=== PATIENT | male | born 1940 | race Two or more races ===

== ENCOUNTER 2020-12-20 11:03 | Inpatient (IN) | payer OTHER ==
[~2020-12-20] VITALS: Ht 175.3 cm; Wt 85.3 kg
[2020-12-20] MEDS ORDERED: TRADJENTA5 MG (11:18)
[2020-12-20] MEDS ORDERED: CARVEDILOL ER40 MG (11:19)
[2020-12-20] MEDS ORDERED: NORVASC5 MG (11:19)
[2020-12-20] MEDS ORDERED: HUMALOG MI100 UNIT/2 (11:19)
[2020-12-20] MEDS ORDERED: AVAPRO300 MG (11:20)
[2020-12-20] MEDS ORDERED: LEVOTHYROXINE25 MC2 (11:20)
[2020-12-20] MEDS ORDERED: PROTONIX40 MG (11:21)
[2020-12-20] MEDS ORDERED: JANTOVEN2 MG (11:21)
[2020-12-20] MEDS ORDERED: PEPCID AC20 MG (11:21)
[2020-12-20] MEDS ORDERED: FENOFIBRATE150 MG (11:22)
[2020-12-20] MEDS ORDERED: MEMANTINE HCL1 EACH (11:22)
[2020-12-20] MEDS ORDERED: CRESTOR10 MG (11:22)
[2020-12-20] MEDS ORDERED: [UNRECOGNIZED DRUG - OTHER] (11:23)
[2020-12-25] MEDS ORDERED: CARVEDILOL3.125 MG PO (18:56)
[2020-12-25] MEDS ORDERED: AMLODIPINE BESYL5 MG PO (18:56)
[2020-12-25] MEDS ORDERED: LEVOTHYROXINE25 MCG PO (18:56)
[2020-12-25] MEDS ORDERED: NAMENDA10 MG PO (18:56)
[2020-12-25] MEDS ORDERED: HUMULIN 70100 UNIT/2 SUBCUTANEO ×2 (18:56)
[2020-12-25] MEDS ORDERED: AVAPRO300 MG PO (18:56)
[2020-12-25] MEDS ORDERED: FAMOTIDINE20 MG PO (18:56)
[2020-12-25] MEDS ORDERED: INTEGRA PLUS C1 EACH PO (18:56)
[2020-12-25] MEDS ORDERED: PROTONIX40 MG PO (19:03)
[2020-12-25] MEDS ORDERED: WARFARIN SODIUM2 MG PO (19:03)
[2020-12-25] MEDS ORDERED: WARFARIN SODIUM3 MG PO (19:03)
== END 2020-12-25 21:14 | disposition home or self-care (01) | DRG 378 ==
LOC: ER 11:03 → MEDI 19:50
PROVIDERS: ADMIT Internal Medicine; ATTEND Internal Medicine
PROC: BW2110Z Computerized Tomography (CT Scan) of Abdomen and Pelvis using Low Osmolar Contrast, Unenhanced and Enhanced (ICD-10-PCS; 2020-12-23)
PROC: 3E0F7SF Introduction of Other Gas into Respiratory Tract, Via Natural or Artificial Opening (ICD-10-PCS; 2020-12-23)
PROC: 0DBH8ZX Excision of Cecum, Via Natural or Artificial Opening Endoscopic, Diagnostic (ICD-10-PCS; principal; 2020-12-24)
PROC: 0DBP8ZX Excision of Rectum, Via Natural or Artificial Opening Endoscopic, Diagnostic (ICD-10-PCS; 2020-12-24)
PROC: BW2510Z Computerized Tomography (CT Scan) of Chest, Abdomen and Pelvis using Low Osmolar Contrast, Unenhanced and Enhanced (ICD-10-PCS; 2020-12-24)
PROC: CW1N1ZZ Planar Nuclear Medicine Imaging of Whole Body using Technetium 99m (Tc-99m) (ICD-10-PCS; 2020-12-24)
DX: K62.5 Hemorrhage of anus and rectum (principal); C20 Malignant neoplasm of rectum; K62.89 Other specified diseases of anus and rectum; I10 Essential (primary) hypertension; E11.9 Type 2 diabetes mellitus without complications; E78.5 Hyperlipidemia, unspecified; Z20.822 Contact with and (suspected) exposure to COVID-19; Z79.01 Long term (current) use of anticoagulants; Z95.2 Presence of prosthetic heart valve

== ENCOUNTER 2021-02-25 12:20 | Inpatient (IN) | payer OTHER ==
[~2021-02-25] VITALS: Ht 175.3 cm; Wt 85.3 kg
[~2021-02-25 12:20] MED LIST: AMLODIPINE BESYL5 MG PO; AVAPRO300 MG; AVAPRO300 MG PO; CARVEDILOL ER40 MG; CARVEDILOL3.125 MG PO; CRESTOR10 MG; FAMOTIDINE20 MG PO; FENOFIBRATE150 MG; HUMALOG MI100 UNIT/2; HUMULIN 70100 UNIT/2 SUBCUTANEO; INTEGRA PLUS C1 EACH PO; JANTOVEN2 MG; LEVOTHYROXINE25 MC2; LEVOTHYROXINE25 MCG PO; MEMANTINE HCL1 EACH; NAMENDA10 MG PO; NORVASC5 MG; PEPCID AC20 MG; PROTONIX40 MG; PROTONIX40 MG PO; TRADJENTA5 MG; WARFARIN SODIUM2 MG PO; WARFARIN SODIUM3 MG PO; [UNRECOGNIZED DRUG - OTHER]
[2021-02-26] MEDS ORDERED: FENOFIBRATE145 MG (10:23)
[2021-02-26] MEDS ORDERED: CHLORTHALIDONE25 MG (10:23)
[2021-02-26] MEDS ORDERED: INTEGRA PLUS C1 EACH PO (18:38)
[2021-02-26] MEDS ORDERED: AVAPRO300 MG PO (18:39)
[2021-02-26] MEDS ORDERED: AMLODIPINE BESYL5 MG PO (18:39)
[2021-02-26] MEDS ORDERED: CARVEDILOL3.125 MG PO (18:39)
[2021-02-26] MEDS ORDERED: NAMENDA10 MG PO (18:40)
[2021-02-26] MEDS ORDERED: FAMOTIDINE20 MG PO (18:40)
[2021-02-26] MEDS ORDERED: PROTONIX40 MG PO (18:40)
[2021-02-26] MEDS ORDERED: HUMULIN 70100 UNIT/2 SUBCUTANEO ×2 (18:40)
[2021-02-26] MEDS ORDERED: LEVOTHYROXINE25 MCG PO (18:40)
[2021-02-26] MEDS ORDERED: PLAVIX75 MG PO (18:43)
== END 2021-02-26 19:01 | disposition home or self-care (01) | DRG 812 ==
LOC: MEDI 12:20
PROVIDERS: ADMIT Internal Medicine Hematology & Oncology; ATTEND Internal Medicine Hematology & Oncology
PROC: 30233N1 Transfusion of Nonautologous Red Blood Cells into Peripheral Vein, Percutaneous Approach (ICD-10-PCS; principal; 2021-02-25)
DX: D64.9 Anemia, unspecified (principal); C20 Malignant neoplasm of rectum; K92.1 Melena; D50.0 Iron deficiency anemia secondary to blood loss (chronic)

== ENCOUNTER 2021-03-21 12:34 | Emergency (ER) | payer OTHER ==
[~2021-03-21] VITALS: Ht 167.6 cm; Wt 76.7 kg
[~2021-03-21 12:34] MED LIST changes: +CHLORTHALIDONE25 MG; +FENOFIBRATE145 MG; +PLAVIX75 MG PO
[2021-03-21] MEDS ORDERED: HUMALOG100 UNIT/2 SUBCUTANEO (12:59)
[2021-03-21] MEDS ORDERED: PEPCID AC20 MG PO ×2 (13:00→17:01)
[2021-03-21] MEDS ORDERED: PLAVIX75 MG PO (13:00)
[2021-03-21] MEDS ORDERED: CARVEDILOL ER40 MG PO (13:00)
[2021-03-21] MEDS ORDERED: LEVOTHYROXINE25 MCG PO (13:01)
[2021-03-21] MEDS ORDERED: ROSUVASTATIN CAL5 MG PO (13:01)
[2021-03-21] MEDS ORDERED: FENOFIBRATE150 MG PO (13:01)
[2021-03-21] MEDS ORDERED: INTESTINEX680 M1 PO (17:01)
[2021-03-21] MEDS ORDERED: LEVSIN/SL0.125 MG PO (17:01)
[2021-03-21] MEDS ORDERED: ONDANSETRON ODT4 MG PO (17:01)
== END 2021-03-21 18:31 ==
LOC: ER 12:34
DX: K52.89 Other specified noninfective gastroenteritis and colitis (principal); C18.8 Malignant neoplasm of overlapping sites of colon; E86.0 Dehydration; Z20.822 Contact with and (suspected) exposure to COVID-19

== ENCOUNTER 2021-03-23 15:25 | Inpatient (IN) | payer OTHER ==
[~2021-03-23] VITALS: Ht 274.3 cm; Wt 5.0 kg
[~2021-03-23 15:25] MED LIST changes: +CARVEDILOL ER40 MG PO; +FENOFIBRATE150 MG PO; +HUMALOG100 UNIT/2 SUBCUTANEO; +INTESTINEX680 M1 PO; +LEVSIN/SL0.125 MG PO; +ONDANSETRON ODT4 MG PO; +PEPCID AC20 MG PO; +ROSUVASTATIN CAL5 MG PO
== END 2021-04-07 15:04 | disposition home health service (06) | DRG 682 ==
LOC: ER 15:25 → MEDI 03-24 12:10
PROVIDERS: ADMIT Internal Medicine; ATTEND Internal Medicine
PROC: 02HV33Z Insertion of Infusion Device into Superior Vena Cava, Percutaneous Approach (ICD-10-PCS; principal; 2021-03-26)
DX: N17.8 Other acute kidney failure (principal); A41.9 Sepsis, unspecified organism; K92.0 Hematemesis; C19 Malignant neoplasm of rectosigmoid junction; I13.0 Hypertensive heart and chronic kidney disease with heart failure and stage 1 through stage 4 chronic kidney disease, or unspecified chronic kidney disease; E87.0 Hyperosmolality and hypernatremia; K56.699 Other intestinal obstruction unspecified as to partial versus complete obstruction; I50.9 Heart failure, unspecified; E11.22 Type 2 diabetes mellitus with diabetic chronic kidney disease; E11.65 Type 2 diabetes mellitus with hyperglycemia; N18.2 Chronic kidney disease, stage 2 (mild); Z95.1 Presence of aortocoronary bypass graft; Z79.01 Long term (current) use of anticoagulants; E86.0 Dehydration; Z79.4 Long term (current) use of insulin